=== PATIENT | female | born 1960 | race Caucasian/White ===

== ENCOUNTER 2017-01-05 11:04 | Emergency (ER) | payer OTHER ==
[~2017-01-05 11:04] MED LIST: AMLODIPINE BESYL5 M1 PO; ATORVASTATIN CA40 M1 PO; EPOGEN20000 U/ML SC; LANTUS SOLOS100 U/M1 SC; METOLAZONE2.5 M1 PO; NEPHRO-VITE VITA1 EA PO; PANTOPRAZOLE SO40 M1 PO; RENVELA800 M1 PO; ULORIC40 M1 PO
[2017-01-05 12:04] LABS: BASOPHIL % 0.6 % (0-2); PLATELET COUNT 346 x10^3mcL (130-400); RED CELL DISTRIBUTION WIDTH 14.4 % (11.5-14.5)
[2017-01-05 12:12] LABS: BILIRUBIN TOTAL 0.2 mg/dL (0.20-1.00); CALCIUM 8.5 mg/dL (8.5-10.1); CARBON DIOXIDE 26.8 mmol/L (21-32); POTASSIUM SERUM 4.5 mmol/L (3.5-5.1); TOTAL PROTEIN, SERUM 7.6 g/dL (6.4-8.2)
[2017-01-05 12:15] LABS: ALBUMIN 3.2 g/dL (3.4-5.0)
[2017-01-05 12:16] LABS: CREATININE SERUM 4.6 mg/dL (0.6-1.0)
[2017-01-05 12:26] VITALS: BP 150/77
== END 2017-01-05 12:31 | disposition home or self-care (01) ==
LOC: ED 11:04
PROVIDERS: Emergency Medicine
DX: E87.5 Hyperkalemia (principal); N19 Unspecified kidney failure; Z88.2 Allergy status to sulfonamides; Z88.8 Allergy status to other drugs, medicaments and biological substances; I10 Essential (primary) hypertension; E11.9 Type 2 diabetes mellitus without complications; Z99.2 Dependence on renal dialysis
CPT/HCPCS: 36415